=== PATIENT | male | born 1960 | race Caucasian/White ===

== ENCOUNTER 2022-04-15 02:48 | Inpatient (IN) | payer OTHER ==
[~2022-04-15] VITALS: Ht 182.9 cm; Wt 101.4 kg
[2022-04-15 03:39] LABS: Basophils # (auto) 0 10 ^3/uL (0-0.2); Basophils % (auto) 0.8 % (0.0-2.0); Eosinophils # (auto) 0 10 ^3/uL (0-0.8); Eosinophils % (auto) 0.6 % (0.0-7.0); Hematocrit 46.2 % (41.0-53.0); Hemoglobin 15.4 g/dL (13.5-17.5); Lymphocytes # (auto) 0.4 10 ^3/uL (0.4-5.4); Lymphocytes % (auto) 6.6 % (10.0-50.0); Mean Corpuscular Hemoglobin 31.8 pg (28.0-32.0); Mean Corpuscular Hgb Conc. 33.5 g/dL (32.0-36.0); Mean Corpuscular Volume 95.2 fL (80.0-100.0); Monocytes # (auto) 0.8 10 ^3/uL (0-1.3); Monocytes % (auto) 12.4 % (0.0-12.0); Neutrophils # (auto) 4.9 10 ^3/uL (1.6-8.6); Neutrophils % (auto) 79.6 % (37.0-80.0); Nucleated Red Blood Cells % 0.2 %; Red Blood Cells 4.85 10^6/uL (4.5-5.90); Red Cell Distribution Width 14.9 % (11.8-14.3); White Blood Cell 6.2 10^3/uL (4.4-10.8)
[2022-04-15 04:04] LABS: Potassium 4.4 mmol/L (3.5-5.1)
[2022-04-15 04:10] LABS: Albumin 3.8 g/dL (3.4-5.0); BUN/Creatinine Ratio 16.2; Bilirubin, Total 0.8 mg/dL (0.2-1.0); Calcium 8.5 mg/dL (8.5-10.1); Total Protein 7.2 g/dL (6.4-8.2)
[2022-04-15] MEDS ORDERED: FUROSEMIDE 100 MG/10ML VIAL IV ONE (05:45)
[2022-04-15] MEDS ORDERED: NITROGLYCERIN 0.4MG/HR TOPICAL PATCH TD ONE (05:45)
[2022-04-15] MEDS ORDERED: ENOXAPARIN SOD 100 MG/1 ML SYRINGE SC ONE (07:15)
[2022-04-15] MEDS ORDERED: ALBUTEROL MEDNEB 2.5 mg/3ml NEB ONE (08:08)
[2022-04-15] MEDS ORDERED: IPRATROPIUM BROM 0.5 MG/2.5ML INH SOL NEB ONE (08:15)
[2022-04-15] MEDS ORDERED: FUROSEMIDE 20 MG/2 ML VIAL IV ONE (08:15)
[2022-04-15] MEDS ORDERED: ALBUTEROL SULF 2.5 MG/0.5ML(0.5%) NEB SOLN NEB ONE (08:15)
[2022-04-15] MEDS ORDERED: methylPREDNISolone SOD SUCC 125 MG/2 ML VL IV ONE (08:30)
[2022-04-15] MEDS ORDERED: HEPARIN SODIUM (PORCINE) 5000 UNITS/ML 1ML VIAL IV ONE (10:15)
[2022-04-15] MEDS ORDERED: ASPirin 81 mg TAB PO ONE (10:30)
[2022-04-15] MEDS ORDERED: CLOPIDOGREL BISULFATE 75 MG TAB PO ONE (10:30)
[2022-04-15 10:54] LABS: Basophils # (auto) 0 10 ^3/uL (0-0.2); Basophils % (auto) 0.7 % (0.0-2.0); Eosinophils # (auto) 0 10 ^3/uL (0-0.8); Eosinophils % (auto) 0.2 % (0.0-7.0); Hematocrit 45.7 % (41.0-53.0); Lymphocytes # (auto) 0.3 10 ^3/uL (0.4-5.4); Lymphocytes % (auto) 6.7 % (10.0-50.0); Mean Corpuscular Hgb Conc. 34.9 g/dL (32.0-36.0); Mean Corpuscular Volume 94.7 fL (80.0-100.0); Monocytes # (auto) 0.4 10 ^3/uL (0-1.3); Monocytes % (auto) 7.9 % (0.0-12.0); Neutrophils % (auto) 84.5 % (37.0-80.0); Nucleated Red Blood Cells % 0.4 %; Red Blood Cells 4.83 10^6/uL (4.5-5.90); Red Cell Distribution Width 14.6 % (11.8-14.3); White Blood Cell 4.7 10^3/uL (4.4-10.8)
[2022-04-15] MEDS ORDERED: HYDROcodone-ACET 5/325MG TAB PO PRN (11:00)
[2022-04-15] MEDS ORDERED: NITROGLYCERIN 0.4 MG SL TAB SL PRN (11:00)
[2022-04-15] MEDS ORDERED: DOCUSATE SOD 100 MG CAP PO PRN (11:00)
[2022-04-15] MEDS ORDERED: MORPHINE SULFATE INJ 2 MG/ml SYRG IV PRN ×2 (11:00)
[2022-04-15] MEDS ORDERED: ONDANSETRON HCL 4 MG/2 ML VIAL IV PRN (11:00)
[2022-04-15] MEDS ORDERED: ACETAMINOPHEN 325 MG TAB PO PRN (11:00)
[2022-04-15 11:08] LABS: INR 1.22 (0.9-1.15)
[2022-04-15] MEDS ORDERED: CARV12.544 PO (11:10)
[2022-04-15] MEDS ORDERED: HYDR25TA5 PO (11:10)
[2022-04-15] MEDS ORDERED: FURO40TA4 PO (11:10)
[2022-04-15] MEDS ORDERED: ATOR40TA52 PO (11:10)
[2022-04-15] MEDS ORDERED: POTA1TAB4 (11:10)
[2022-04-15] MEDS ORDERED: CLOP75TA70 PO (11:10)
[2022-04-15] MEDS ORDERED: ISOS1TAB28 PO (11:10)
[2022-04-15] MEDS ORDERED: ASPI-325 PO (11:10)
[2022-04-15] MEDS ORDERED: MORPHINE SULFATE INJ 2 MG/ml SYRG IM ONE (11:15)
[2022-04-15] MEDS: HEPARIN DRIP/D5W 100UNITS/ML 250 ML IV SCH (11:34)
[2022-04-15 12:36] LABS: Urine Bacteria FEW /hpf (None Seen); Urine Blood Negative /uL (Negative); Urine Hyaline Cast FEW /lpf (0 - 2); Urine Specific Gravity 1.006 (1.001-1.035); Urine WBC <1 /hpf (0 - 3)
[2022-04-15 12:40] LABS: Alcohol, Urine < 3.0 mg/dL (0-10); Amphetamine Screen, Urine POSITIVE (NEGATIVE); Barbiturate Scree,Urine NEGATIVE (NEGATIVE); Benzodiazephine Screen, Urine NEGATIVE (NEGATIVE); Cocaine Screen, Urine NEGATIVE (NEGATIVE); Opiate Scree,Urine NEGATIVE (NEGATIVE); Phencyclidine Screen, Urine NEGATIVE (NEGATIVE)
[2022-04-15 12:48] LABS: Cannabinoid Screen, Urine POSITIVE (NEGATIVE)
[2022-04-15] MEDS: SODIUM CHLOR 0.9% PF (SALINE LOCK) 10ML VIAL/SYR IV SCH ×2 (13:39→21:12)
[2022-04-15 17:46] LABS: INR 1.2 (0.9-1.15); Partial Thromboplastin Time 56.9 sec (24.6-33.4)
[2022-04-15] MEDS: ATORVASTATIN 20 MG TAB PO SCH (21:11)
[2022-04-15] MEDS: CARVEDILOL 12.5 MG TAB PO SCH (21:12)
[2022-04-15] MEDS: FUROSEMIDE 40 MG TAB PO SCH (21:12)
[2022-04-15 22:00] VITALS: BP 104/62
[2022-04-15 23:42] LABS: INR 1.18 (0.9-1.15); Partial Thromboplastin Time 45.6 sec (24.6-33.4)
[2022-04-16 05:00] VITALS: BP 104/65
[2022-04-16] MEDS: SODIUM CHLOR 0.9% PF (SALINE LOCK) 10ML VIAL/SYR IV SCH ×3 (06:24→21:56)
[2022-04-16 07:53] LABS: INR 1.13 (0.9-1.15)
[2022-04-16] MEDS: ASPirin-EC 81 mg tab PO SCH (07:56)
[2022-04-16] MEDS: CLOPIDOGREL BISULFATE 75 MG TAB PO SCH (07:56)
[2022-04-16] MEDS: FUROSEMIDE 40 MG TAB PO SCH ×2 (07:57→21:58)
[2022-04-16] MEDS: CARVEDILOL 12.5 MG TAB PO SCH ×2 (07:57→21:57)
[2022-04-16] MEDS: ISOSORBIDE MONONITRATE ER 60 MG TAB PO SCH (07:58)
[2022-04-16] MEDS: HCTZ 25 MG TAB PO SCH (07:58)
[2022-04-16] MEDS: HEPARIN DRIP/D5W 100UNITS/ML 250 ML IV SCH (08:39)
[2022-04-16 09:00] VITALS: BP 112/69
[2022-04-16 13:00] VITALS: BP_SYST 112; BP_SYST 94; BP_DIAS 58; BP_DIAS 69
[2022-04-16 17:00] VITALS: BP 112/62
[2022-04-16] MEDS: ATORVASTATIN 20 MG TAB PO SCH (21:58)
[2022-04-16 22:00] VITALS: BP 108/70
[2022-04-16] MEDS ORDERED: TEMAZEPAM 15 MG CAP PO ONE (22:15)
[2022-04-17 05:00] VITALS: BP 103/50
[2022-04-17] MEDS: SODIUM CHLOR 0.9% PF (SALINE LOCK) 10ML VIAL/SYR IV SCH (05:10)
[2022-04-17 05:30] LABS: Basophils # (auto) 0.1 10 ^3/uL (0-0.2); Basophils % (auto) 0.7 % (0.0-2.0); Eosinophils # (auto) 0.1 10 ^3/uL (0-0.8); Eosinophils % (auto) 1.4 % (0.0-7.0); Hematocrit 44.9 % (41.0-53.0); Lymphocytes # (auto) 1.6 10 ^3/uL (0.4-5.4); Lymphocytes % (auto) 23.2 % (10.0-50.0); Mean Corpuscular Hgb Conc. 33.4 g/dL (32.0-36.0); Mean Corpuscular Volume 95.7 fL (80.0-100.0); Monocytes # (auto) 0.7 10 ^3/uL (0-1.3); Monocytes % (auto) 10.6 % (0.0-12.0); Neutrophils # (auto) 4.5 10 ^3/uL (1.6-8.6); Neutrophils % (auto) 64.1 % (37.0-80.0); Nucleated Red Blood Cells % 0.1 %; Red Blood Cells 4.69 10^6/uL (4.5-5.90); Red Cell Distribution Width 14.7 % (11.8-14.3)
[2022-04-17 05:46] LABS: BUN/Creatinine Ratio 25.5; Calcium 9.1 mg/dL (8.5-10.1); Potassium 3.9 mmol/L (3.5-5.1)
[2022-04-17 08:00] VITALS: BP 94/46
[2022-04-17 09:00] VITALS: BP 94/46
[2022-04-17] MEDS: ASPirin-EC 81 mg tab PO SCH (09:47)
[2022-04-17] MEDS: FUROSEMIDE 40 MG TAB PO SCH (09:49)
[2022-04-17] MEDS: CLOPIDOGREL BISULFATE 75 MG TAB PO SCH (09:49)
[2022-04-17] MEDS: ISOSORBIDE MONONITRATE ER 60 MG TAB PO SCH (09:53)
[2022-04-17] MEDS ORDERED: ENOXAPARIN SOD 40 MG/0.4 ML SYRINGE SC SCH (10:00)
[2022-04-17] MEDS: CARVEDILOL 12.5 MG TAB PO SCH ×2 (10:00→10:27)
[2022-04-17] MEDS: HCTZ 25 MG TAB PO SCH (10:00)
[2022-04-17] MEDS ORDERED: ISOS1TAB28 PO (10:31)
[2022-04-17] MEDS ORDERED: FURO40TA4 PO (10:31)
[2022-04-17] MEDS ORDERED: ATOR40TA52 PO (10:31)
[2022-04-17] MEDS ORDERED: ASPI-325 PO (10:31)
[2022-04-17] MEDS ORDERED: CARV12.544 PO (10:31)
[2022-04-17] MEDS ORDERED: HYDR25TA5 PO (10:31)
[2022-04-17] MEDS ORDERED: CLOP75TA70 PO (10:31)
[2022-04-17 10:52] VITALS: BP 106/64
== END 2022-04-17 12:50 | disposition home or self-care (01) | DRG 280 ==
LOC: ER 02:48 → TELE 10:58 → TELE-EAST 19:04
PROVIDERS: ADMIT Internal Medicine; ATTEND Internal Medicine Pulmonary Disease
DX: I13.0 Hypertensive heart and chronic kidney disease with heart failure and stage 1 through stage 4 chronic kidney disease, or unspecified chronic kidney disease (principal); I21.4 Non-ST elevation (NSTEMI) myocardial infarction; I50.43 Acute on chronic combined systolic (congestive) and diastolic (congestive) heart failure; N18.9 Chronic kidney disease, unspecified; R06.03 Acute respiratory distress; Z20.822 Contact with and (suspected) exposure to COVID-19; E66.01 Morbid (severe) obesity due to excess calories; F15.10 Other stimulant abuse, uncomplicated; I25.10 Atherosclerotic heart disease of native coronary artery without angina pectoris; I25.5 Ischemic cardiomyopathy; I25.2 Old myocardial infarction; Z86.73 Personal history of transient ischemic attack (TIA), and cerebral infarction without residual deficits; Z88.0 Allergy status to penicillin; Z91.199 Patient's noncompliance with other medical treatment and regimen due to unspecified reason; Z95.1 Presence of aortocoronary bypass graft; Z68.30 Body mass index [BMI] 30.0-30.9, adult
CPT/HCPCS: 36415; 71045; 80048; 80053; 80307; 81001; 83880; 84484; 85025; 85379; 85610; 85730; 87426; 87804; 93005; 93306; 94640; 96372; 96374; 96375; 96376; 99291; G0378

== ENCOUNTER 2022-04-18 13:56 | Emergency (ER) | payer OTHER ==
[~2022-04-18] VITALS: Ht 175.3 cm; Wt 96.9 kg
[2022-04-18 13:56] VITALS: BP 111/5
[~2022-04-18 13:56] MED LIST: ASPI-325 PO; ATOR40TA52 PO; CARV12.544 PO; CLOP75TA70 PO; FURO40TA4 PO; HYDR25TA5 PO; ISOS1TAB28 PO
[2022-04-18 15:27] LABS: Albumin 3.8 g/dL (3.4-5.0); Basophils # (auto) 0.1 10 ^3/uL (0-0.2); Basophils % (auto) 0.7 % (0.0-2.0); Calcium 9.5 mg/dL (8.5-10.1); Eosinophils # (auto) 0.2 10 ^3/uL (0-0.8); Hematocrit 47.3 % (41.0-53.0); Hemoglobin 16.4 g/dL (13.5-17.5); Lymphocytes # (auto) 1.5 10 ^3/uL (0.4-5.4); Lymphocytes % (auto) 20.1 % (10.0-50.0); Magnesium 2.6 mg/dL (1.6-2.6); Mean Corpuscular Hemoglobin 32.1 pg (28.0-32.0); Mean Corpuscular Hgb Conc. 34.6 g/dL (32.0-36.0); Mean Corpuscular Volume 92.8 fL (80.0-100.0); Monocytes # (auto) 0.6 10 ^3/uL (0-1.3); Monocytes % (auto) 7.5 % (0.0-12.0); Neutrophils # (auto) 5.3 10 ^3/uL (1.6-8.6); Neutrophils % (auto) 69.7 % (37.0-80.0); Nucleated Red Blood Cells % 0.2 %; Potassium 3.4 mmol/L (3.5-5.1); Red Cell Distribution Width 14.5 % (11.8-14.3); White Blood Cell 7.6 10^3/uL (4.4-10.8)
[2022-04-18 15:29] LABS: BUN/Creatinine Ratio 25.7
[2022-04-18 15:32] LABS: Bilirubin, Total 0.9 mg/dL (0.2-1.0); Total Protein 7.1 g/dL (6.4-8.2)
[2022-04-18] MEDS ORDERED: ASPirin 325 MG TAB PO ONE (17:00)
== END 2022-04-18 17:42 | disposition left against medical advice (07) ==
LOC: ER 13:56
DX: I21.4 Non-ST elevation (NSTEMI) myocardial infarction (principal); R06.00 Dyspnea, unspecified; I11.0 Hypertensive heart disease with heart failure; I50.9 Heart failure, unspecified; I25.2 Old myocardial infarction; I25.10 Atherosclerotic heart disease of native coronary artery without angina pectoris; Z86.73 Personal history of transient ischemic attack (TIA), and cerebral infarction without residual deficits; Z95.1 Presence of aortocoronary bypass graft; Z20.822 Contact with and (suspected) exposure to COVID-19
CPT/HCPCS: 36415; 71045; 80053; 83735; 83880; 84484; 85025; 85379; 87426; 87804; 93005